=== PATIENT | female | born 1990 | race Caucasian/White ===

== ENCOUNTER 2019-12-28 21:40 | Emergency (ER) | payer BC ==
[~2019-12-28] VITALS: Ht 157.5 cm; Wt 69.1 kg
[2019-12-28 21:56] VITALS: Ht 157.5 cm; Wt 69.1 kg
[2019-12-28 23:07] LABS: PLATELET COUNT 346 x10^3mcL (130-400); RED CELL DISTRIBUTION WIDTH 21.8 % (11.5-14.5)
[2019-12-29 02:35] VITALS: BP 109/73
== END 2019-12-29 02:35 | disposition home or self-care (01) ==
LOC: ED 21:40
DX: O72.2 Delayed and secondary postpartum hemorrhage (principal); O90.81 Anemia of the puerperium
CPT/HCPCS: Q0092